=== PATIENT | male | born 1985 | race Caucasian/White ===

== ENCOUNTER 2017-01-12 14:13 | Outpatient (CLI) | payer BC ==
[~2017-01-12] VITALS: Ht 185.4 cm; Wt 96.6 kg
[~2017-01-12 14:13] MED LIST: AMOX-358 PO; HYDR-3454 PO
[2017-01-12 14:28] VITALS: BP 130/80
[2017-01-13] MEDS ORDERED: HYDR-3812 PO (08:48)
== END 2017-01-12 14:57 | disposition home or self-care (01) ==
LOC: PREOP 14:13
PROVIDERS: ATTEND Surgery
DX: Z01.818 Encounter for other preprocedural examination (principal); Z11.2 Encounter for screening for other bacterial diseases; K61.0 Anal abscess
CPT/HCPCS: 87081

== ENCOUNTER 2017-01-13 07:33 | Day surgery (SDC) | payer BC ==
[~2017-01-13] VITALS: Ht 185.4 cm; Wt 96.6 kg
[2017-01-13] MEDS: LACTATED RINGERS 1,000 ML IV PRN ×2 (07:45→08:50)
--- NOTE | 2017-01-13 07:54 | Progress Note-Pre Operative ---
Pre-Operative Progress Note H&P Reviewed The H&P was reviewed, patient examined and no changes noted. Date H&P Reviewed: Jan 13, 2017 Time H&P Reviewed: 07:54 Pre-Operative Diagnosis: Recurrent jose-anal abscess JOSEFINA SALDAÑA MD Jan 13, 2017 7:54 am
[2017-01-13 07:55] VITALS: BP 155/94
[2017-01-13] MEDS ORDERED: MIDAZOLAM 2 MG/2 ML (VERSED) VIAL IV ONE (08:00)
[2017-01-13] MEDS ORDERED: ceFAZolin 2 GM/NS 50 ML IV ONE (08:00)
--- OUTSIDE RECORDS SUMMARY | 2017-01-13 08:04 | XMS REPORT | Continuity of Care Document ---
Author Author [facility] Organization [facility] Address Unknown Phone Unavailable Care Team Providers Care Change Director Name Role Phone CARI MAE DO PCP Insurance Providers Payer Name Policy Number Subscriber Name Relationship [facility] [id number] Tyler Rodriguez 18 Self / Same As Patient Advance Directives Directive Response Recorded Date/Time Advance Directives No 01/12/17 2:24pm Health Care Power of Insurance Legal Assistant No 01/12/17 2:24pm Resuscitation Status Full Code 01/12/17 2:24pm Problems No problem information available. Medications No known medications. Social History Social History Problem Response Recorded Date/Time Alcohol Use Occasionally Uses 07/08/2015 12:45pm Recreational Drug Use No 07/08/2015 12:45pm Recent Foreign Travel No 01/12/2017 2:23pm Recent Infectious Disease Exposure No 01/12/2017 2:23pm Sexually Transmitted Disease No 01/12/2017 2:24pm HIV/AIDS No 01/12/2017 2:24pm Smoking Status Never a Smoker 01/12/2017 2:24pm Recent Hopitalizations No 01/12/2017 2:24pm Sexually Transmitted Disease No 01/12/2017 2:24pm Query Response Start Date Stop Date Smoking Status Never a Smoker Hospital Discharge Instructions No hospital discharge instructions. Plan of Care Discharge Date 01/12/17 2:57pm Prescriptions See Medication Section Functional Status No functional status results. Allergies, Adverse Reactions, Alerts Allergen Type Severity Reaction Status Last Updated Tramadol Allergy Intermediate GI UPSET Active 01/12/17 Immunizations No immunization records. Vital Signs Acute Vital Signs Vital Response Date/Time Pulse Rate (adult) 89 bpm (60 - 90) 01/12/2017 2:28pm Respiratory Rate 16 bpm (12 - 24) 01/12/2017 2:28pm O2 Sat by Pulse Oximetry 100 % (88 - 100) 01/12/2017 2:28pm Blood Pressure 130/80 mm Hg 01/12/2017 2:28pm Blood Pressure Mean 97 mm Hg 01/12/2017 2:28pm Pain Numeric Pain Scale 10-Worst Possible Pain 01/12/2017 2:28pm Height (Feet) 6 feet 01/12/2017 2:23pm Height (Inches) 1.00 inches 01/12/2017 2:23pm Height (Calculated Centimeters) 185.004308 cm 01/12/2017 2:23pm Weight (Pounds) 213 pounds 01/12/2017 2:23pm Weight (Ounces) 0.0 oz 01/12/2017 2:23pm Weight (Calculated Grams) 67632.18 gm 01/12/2017 2:23pm Weight (Calculated Kilograms) 96.735518 kilograms 01/12/2017 2:23pm Calculated BMI 28.1 01/12/2017 2:23pm Results No known relevant diagnostic tests, laboratory data and/or discharge summary. Procedures No known history of procedures. Encounters Encounter Location Arrival/Admit Date Discharge/Depart Date Attending Provider Departed Clinic [facility] 01/12/17 2:13pm 01/12/17 2: 57pm JOSEFINA SALDAÑA MD
--- OUTSIDE RECORDS SUMMARY | 2017-01-13 08:04 | XMS REPORT | Continuity of Care Document ---
Author Author [facility] Organization [facility] Address Unknown Phone Unavailable Care Team Providers Care Junior Legal Secretary Name Role Phone CARI MAE DO PCP Insurance Providers Payer Name Policy Number Subscriber Name Relationship [facility] [id number] Tyler Rodriguez 18 Self / Same As Patient Advance Directives Directive Response Recorded Date/Time Advance Directives No 01/12/17 2:24pm Health Care Power of Contour Grinder No 01/12/17 2:24pm Resuscitation Status Full Code [...] 1.00 inches 01/12/2017 2:23pm Height (Calculated Centimeters) 185.653763 cm 01/12/2017 2:23pm Weight (Pounds) 213 pounds 01/12/2017 2:23pm Weight (Ounces) 0.0 oz 01/12/2017 2:23pm Weight (Calculated Grams) 30516.18 gm 01/12/2017 2:23pm Weight (Calculated Kilograms) 96.143836 kilograms 01/12/2017 2:23pm Calculated BMI 28.1 01/12/2017 2:23pm Results No known relevant diagnostic tests, laboratory data and/or discharge summary. Procedures No known history of procedures. Encounters Encounter Location Arrival/Admit Date Discharge/Depart Date Attending Provider Departed Clinic [facility] 01/12/17 2:13pm 01/12/17 2: 57pm JOSEFINA SALDAÑA MD
[2017-01-13] MEDS ORDERED: fentaNYL INJECTION 100 MCG/2 ML AMP IV ONE (08:15)
[2017-01-13] MEDS ORDERED: MIDAZOLAM 2 MG/2 ML (VERSED) VIAL ONE (08:18)
[2017-01-13] MEDS ORDERED: LACTATED RINGERS 1,000 ML IV ONE (08:18)
[2017-01-13] MEDS ORDERED: LIDOCAINE PF 2% 10 ML (XYLOCAINE) AMP ONE (08:18)
[2017-01-13] MEDS ORDERED: proPOfol 200 MG/20 ML (DIPRIVAN) VIAL IV ONE (08:18)
[2017-01-13] MEDS ORDERED: ONDANSETRON 4 MG/2 ML (SDV) Z0FRAN ONE (08:18)
[2017-01-13] MEDS ORDERED: DEXAMETHASONE PF 10 MG/ML (DECADRON) VIAL ONE (08:20)
[2017-01-13] MEDS ORDERED: SEVOFLURANE (ULTANE) 15 ML INHAL SOLN ONE (08:20)
--- NOTE | 2017-01-13 08:47 | Progress Note-Post Operative ---
Post-Operative Progess Note Pre-Operative Diagnosis Recurrent jose-anal abscess Post-Operative Diagnosis SAME Post-Op Procedure Note Date of Procedure: Jan 13, 2017 Name of Procedure: incision and drainage Anesthesia Type Gen. Estimated blood loss (mL): minimal JOSEFINA SALDAÑA MD Jan 13, 2017 8:47 am
[2017-01-13] MEDS ORDERED: HYDR-3812 PO (08:48)
--- NOTE | 2017-01-13 08:48 | Discharge Inst-Simple/Standard ---
Discharge Inst-Standard Discharge Medications New, Converted or Re-Newed RX: RX on Chart Patient Instructions/Follow Up Plan of Care/Instructions/FU: follow-up in a week. To use dosa-ett-korzxor stool softeners Activity as Tolerated: Yes Discharge Diet: No Restrictions JOSEFINA SALDAÑA MD Jan 13, 2017 8:48 am
[2017-01-13] MEDS ORDERED: MEPERIDINE (DEMEROL) INJ 50 MG/ML IVP PRN (09:15)
[2017-01-13] MEDS ORDERED: morphine INJ 10 MG/ML 1ML (SYR OR VIAL) IVP PRN (09:15)
[2017-01-13] MEDS ORDERED: HYDROmorphone (DILAUDID) 2 MG/ML VIAL IVP PRN (09:15)
[2017-01-13] MEDS ORDERED: ONDANSETRON 4 MG/2 ML (SDV) Z0FRAN IVP PRN (09:15)
[2017-01-13 09:55] VITALS: BP 128/81
[2017-01-13] MEDS ORDERED: HYDROcodone/APAP 5 MG/325 MG (LORTAB) TAB ONE (09:57)
[2017-01-13] MEDS ORDERED: HYDROcodone/APAP 5 MG/325 MG (LORTAB) TAB PO PRN (10:15)
[2017-01-13 10:25] VITALS: BP 134/82
[2017-01-13 10:55] VITALS: BP 141/82
--- NOTE | 2017-01-13 11:17 | OPERATIVE REPORT ---
PROCEDURE PHYSICIAN: JOSEFINA SALDAÑA DATE OF PROCEDURE: 01/13/2017 PREOPERATIVE DIAGNOSIS: Recurrent perianal abscess. POSTOPERATIVE DIAGNOSIS: Recurrent perianal abscess. OPERATION: Incision and drainage of recurrent perianal abscess. SURGEON: Ramana ANESTHESIA: General anesthesia. BLOOD LOSS: Minimal. FLUIDS: About 300 mL TYPE OF WOUND: Type IV(dirty wound). INDICATION FOR PROCEDURE: This gentleman presented with a recurrent perianal abscess, requiring formal incision and drainage. An informed consent was obtained after reviewing the operative details and highlighting the natural history of recurrence and the possibility of developing an anal fistula in situ. DESCRIPTION OF PROCEDURE: He was initially placed supine on the operative table and general anesthesia induced. 2 grams of Ancef were administered intravenously. Subsequently, he was placed in combined lithotomy position, his legs being supported on stirrups. The abscess was located at about the 5 o'clock position. A 3 cm radial incision was made and the abscess was drained. The cavity was irrigated with saline and a [place] drain left to promote postoperative drainage. It was secured using a 2-0 silk suture and a dressing applied. He tolerated the procedure well, was extubated in the operating room and taken to the recovery room in a stable condition. Job ID: [id number] Dictated Date: 01/13/2017 08:46:32 Stacker And Sorter Operator Date: 01/13/2017 11:10:27 / gael
== END 2017-01-13 11:05 | disposition home or self-care (01) ==
LOC: SDC 07:33
PROVIDERS: ATTEND Surgery
DX: K61.0 Anal abscess (principal)

== ENCOUNTER 2018-09-25 14:19 | Outpatient (CLI) | payer BC ==
[~2018-09-25] VITALS: Ht 185.4 cm; Wt 99.8 kg
[~2018-09-25 14:19] MED LIST changes: +ACHD5005 PO
== END 2018-09-25 14:40 | disposition home or self-care (01) ==
LOC: PREOP 14:19
PROVIDERS: ATTEND Surgery
DX: Z01.818 Encounter for other preprocedural examination (principal)

== ENCOUNTER 2018-09-26 10:25 | Day surgery (SDC) | payer BC ==
[~2018-09-26] VITALS: Ht 185.4 cm; Wt 99.3 kg
--- OUTSIDE RECORDS SUMMARY | 2018-09-26 10:32 | XMS REPORT | Continuity of Care Document ---
Author Author [facility] Organization [facility] Address Unknown Phone Unavailable Allergies Active Description Code Type Severity Reaction Onset Reported/Identified Relationship to Patient Clinical Status Yes No Known Drug Allergies [id number] Drug Allergy Unknown N/A 07/08/2015 Yes tramadol [id number] Drug Allergy Moderate GI UPSET 01/12/2017 Medications There is no data. Problems Date Dx Coded Attending Type Code Diagnosis Diagnosed By 07/08/2015 PIPER SABILLON, JOSEFINA Guerin Ot 566 07/08/2015 JOSEFINA SALDAÑA MD Ot V74.8 01/12/2017 PIPER SABILLON, JOSEFINA Guerin Ot K61.0 ANAL ABSCESS 01/12/2017 PIPER SABILLON, JOSEFINA Guerin Ot Z01.818 ENCOUNTER FOR OTHER PREPROCEDURAL EXAMIN 01/12/2017 JOSEFINA SALDAAÑ MD Ot Z11.2 ENCOUNTER FOR SCREENING FOR OTHER BACTER 01/13/2017 PIPER SABILLON, JOSEFINA Guerin Ot K61.0 ANAL ABSCESS 01/17/2017 PIPER SABILLON, JOSEFINA Guerin Ot K61.0 ANAL ABSCESS 02/02/2017 JOSEFINA SALDAÑA MD Ot K61.0 ANAL ABSCESS Procedures There is no data. Results Test Result Range Methicillin resistant Staphylococcus aureus (MRSA) screening culture - 14:30 Methicillin resistant Staphylococcus aureus (MRSA) screening culture NEG NRG Encounters ACCT No. Visit Date/Time Discharge Status Pt. Type Provider Facility Loc./Unit Complaint [id number] 06/08/2015 22:23:02 06/08/2015 23:59:59 CLS Outpatient Hortensia Plascencia [id number] 08/05/2014 11:12:15 08/05/2014 23:59:59 CLS Outpatient Hortensia Plascencia [id number] 01/02/2014 09:57:23 01/02/2014 23:59:59 CLS Outpatient Hortensia Plascencia 12/201709/19/2018 09:50:22 09/19/2018 23:59:59 CLS Outpatient Caroline Brush KevanNicole [id number] 01/13/2017 07:33:00 01/13/2017 11:05:00 DIS Outpatient JOSEFINA SALDAÑA MD [facility] RECURRENT PERIANAL ABSCESS [id number] 01/12/2017 14:13:00 01/12/2017 14:57:00 DIS Outpatient JOSEFINA SALDAÑA MD [facility] PREOP RECURRENT PERIANAL ABSCESS [id number] 07/08/2015 11:57:00 07/08/2015 17:15:00 DIS Outpatient JOSEFINA SALDAÑA MD [facility]
--- OUTSIDE RECORDS SUMMARY | 2018-09-26 10:32 | XMS REPORT ---
Author Author Makenna Montoya [facility] Address [address] [facility] [address] [place], [place] [id number] Care Team Providers Care Quality Control Clerk Name Role Phone Makenna Montoya PCP Unavailable Allergies and Adverse Reactions Name Reaction Notes NO KNOWN DRUG ALLERGIES Plan of Treatment Not available. Medications Active Name Start Date Estimated Completion Date SIG Comments Xanax oral tablet 0.25 mg 05/22/2015 08/20/2015 take 1 tablet by oral route 3 times per day as needed Name Start Date Expiration Date SIG Comments Celexa Oral Tablet 20 mg 05/18/2010 05/13/2011 take 1 tablet (20 mg) by oral route daily for 30 days Soma Oral Tablet 350 mg 10/14/2010 11/13/2010 take 1 tablet (350 mg) by oral route 3 times per day and at bedtime for 30 days Lortab Oral Tablet 7.5-500 mg 10/14/2010 11/13/2010 take 1 tablet by oral route every 6 hours as needed for pain for 30 days Physical therapy eval and TX 10/14/2010 10/15/2010 for back pain Alprazolam Oral Tablet 0.25 mg 04/15/2011 05/15/2011 take 1 tablet (0.25 mg) by oral route TID PRN for 30 days Discontinued Name Start Date Discontinued Date SIG Comments Zoloft Oral Tablet 50 mg 05/18/2010 take 1 tablet (50 mg) by oral route once daily Advil Oral Tablet 200 mg 06/06/2011 take 1 tablet (200 mg) by oral route every 6 hours as needed with food cyclobenzaprine oral tablet 10 mg 01/02/2014 05/22/2015 take 1 tablet (10 mg) by oral route 3 times per day as needed Zoloft oral tablet 50 mg 01/02/2014 05/22/2015 take 1 tablet (50 mg) by oral route once daily hydrocodone-acetaminophen oral tablet 5-325 mg 01/02/2014 05/22/2015 take 1 tablet by oral route every 6 hours as needed for pain Problem List Description Status Onset Anxiety Active Panic Attacks Active Vital Signs Date Time BP-Sys(mm[Hg] BP-Daina(mm[Hg]) HR(bpm) RR(rpm) Temp WT HT HC BMI BSA BMI Percentile O2 Sat(%) 05/22/2015 8:53:00 AM 138 mmHg 82 mmHg 57 bpm 20 rpm 97.6 F 237 lbs 73 in 31.27 kg/m2 2.35 m2 100 % 08/05/2014 10:18:00 AM 134 mmHg 72 mmHg 81 bpm 18 rpm 97.6 F 244.6 lbs 73 in 32.2707 kg/m 2.3905 m 100 % 01/02/2014 9:04:00 AM 141 mmHg 79 mmHg 88 bpm 18 rpm 97.8 F 244.8 lbs 73 in 32.30 kg/m2 2.39 m2 97 % 09/17/2013 9:23:00 AM 140 mmHg 84 mmHg 64 bpm 18 rpm 98.2 F 243 lbs 73 in 32.0597 kg/m 2.3827 m 100 % 05/17/2013 8:42:00 AM 142 mmHg 90 mmHg 82 bpm 20 rpm 97 F 222.4 lbs 73 in 29.34 kg/m2 2.28 m2 100 % 04/16/2013 4:14:00 PM 158 mmHg 90 mmHg 85 bpm 18 rpm 98.6 F 203.8 lbs 73 in 26.8879 kg/m 2.182 m 100 % 06/06/2011 9:35:00 AM 124 mmHg 82 mmHg 70 bpm 16 rpm 97 F 211 lbs 73 in 27.84 kg/m2 2.22 m2 98 % 09/08/2010 3:01:00 PM 140 mmHg 80 mmHg 66 bpm 16 rpm 97.6 F 225.5 lbs 73 in 29.7508 kg/m 2.2953 m 100 % 05/18/2010 10:38:00 AM 140 mmHg 90 mmHg 82 bpm 18 rpm 98.4 F 220.5 lbs 73 in 29.09 kg/m2 2.27 m2 100 % Social History Name Description Comments Student (College) denies smoking experimented with illicit drugs in past marijuana in high school Alcohol Use 1 case of beer / week Dating Exercises regularly 3 years college History of Procedures Date Ordered Description Order Status 09/17/2013 12:00 AM DESTRUCT B9 LESION 1-14 Reviewed 01/02/2014 12:00 AM THER/PROPH/DIAG INJ SC/IM Reviewed 01/02/2014 12:00 AM X-RAY EXAM L-S SPINE BENDING Returned 09/08/2010 12:00 AM THER/PROPH/DIAG INJ SC/IM Reviewed 06/06/2011 12:00 AM DESTRUCT PREMALG LESION Reviewed 06/06/2011 12:00 AM DESTRUCT PREMALG LES 2-14 Reviewed 06/06/2011 12:00 AM DESTRUCT PREMALG LESION Reviewed 06/06/2011 12:00 AM DESTRUCT PREMALG LES 2-14 Reviewed Results Summary Data and Description Results 05/18/2010 10:36 AM Colonoscopy-Women and Men over 50 Declined Digital Rectal Exam Refused PSA SerPl-mCnc 0.0 ng/mLCholest Cry Stone Ql IR 0.0 %LDLc SerPl- mCnc 0.0 mg/dLHDLc SerPl-mCnc 0.0 mg/dLTrigl SerPl-mCnc 0.0 mg/dLGlucose SerPl- mCnc 0.0 mg/dLHIV1+2 Ab Ser Ql no risk Depression Done Aspirin reccommended Refused History Of Immunizations Name Date Admin Mfg Name Mfg Code Trade Name Lot# Route Inj Vis Given Vis Pub CVX Influenza 08/19/2009 Not Entered NE Not Entered Not Entered Not Entered 10/30/2014 10/30/2014 999 History of Past Illness Name Date of Onset Comments Anxiety Panic Attacks Right Bundle Branch Block Anxiety Disorder, Generalized May 18 2010 10:39AM Back Pain with Radiation Sep 08 2010 3:13PM Anxiety Disorder Jun 06 2011 9:35AM Wart Jun 06 2011 9:35AM Common Wart Jun 06 2011 10:01AM Anxiety Disorder Apr 16 2013 4:22PM Anxiety Disorder May 17 2013 8:46AM Depressive Disorder May 17 2013 8:46AM Anxiety Disorder Sep 17 2013 9:27AM Depressive Disorder Sep 17 2013 9:27AM Warts Sep 17 2013 9:27AM Common Warts Sep 17 2013 1:13PM Anxiety Disorder Jan 02 2014 9:06AM Depressive Disorder Jan 02 2014 9:06AM Low Back Pain Jan 02 2014 9:06AM Low Back Pain Jan 02 2014 4:39PM Anxiety Disorder Aug 05 2014 10:20AM Depressive Disorder Aug 05 2014 10:20AM Anxiety Disorder May 22 2015 8:55AM Depressive Disorder May 22 2015 8:55AM Payers Insurance Name Company Name Plan Name Plan Number Policy Number Policy Group Number Start Date [employer] [id number] Monday, 2012 [employer] [place] [id number] January [employer] [place] [id number] Tuesday, 2010 History of Encounters Visit Date Visit Type Provider 05/22/2015 Office visit Hortensia Plascencia PATIENT CENTERED CARE SPECIALIST 08/05/2014 Office visit Hortensia Plascencia PATIENT CENTERED CARE SPECIALIST 01/02/2014 Office visit Hortensia Plascencia PATIENT CENTERED CARE SPECIALIST 09/17/2013 Office visit Hortensia Plascencia APRN 05/17/2013 Office visit Hortensia Plascencia PATIENT CENTERED CARE SPECIALIST 04/16/2013 Office visit Hortensia Plascencia PATIENT CENTERED CARE SPECIALIST 06/06/2011 Office visit Makenna Montoya MD 09/08/2010 Office visit Kj Gregory DO 05/18/2010 Office visit Kj Gregory DO 08/19/2009 Office visit Kj Gregory DO
[2018-09-26] MEDS ORDERED: LACTATED RINGERS 1,000 ML IV PRN ×2 (10:44→11:14)
[2018-09-26 10:45] VITALS: BP 145/84
[2018-09-26] MEDS ORDERED: ceFAZolin 2 GM IV Premixed 50 ML IV ONE (10:45)
--- NOTE | 2018-09-26 10:54 | Progress Note-Pre Operative ---
Pre-Operative Progress Note H&P Reviewed The H&P was reviewed, patient examined and no changes noted. Date Seen by Provider: Sep 25, 2018 Time Seen by Provider: 11:10 Date H&P Reviewed: Sep 26, 2018 Time H&P Reviewed: 10:54 Pre-Operative Diagnosis: Recurrent jose-anal abscess JOSEFINA SALDAÑA MD Sep 26, 2018 10:54
[2018-09-26] MEDS ORDERED: MIDAZOLAM 2 MG/2 ML (VERSED) VIAL IV ONE (11:15)
[2018-09-26] MEDS ORDERED: fentaNYL INJECTION 100 MCG/2 ML AMP IV ONE (11:15)
[2018-09-26] MEDS ORDERED: BUP/EPI 0.5% 1:200,000 (SENSORCAINE) 30 ML VIAL ONE (11:56)
[2018-09-26] MEDS ORDERED: proPOfol 200 MG/20 ML (DIPRIVAN) VIAL IV ONE (12:01)
[2018-09-26] MEDS ORDERED: LIDOCAINE PF 2% 5 ML (XYLOCAINE) VIAL ONE (12:01)
[2018-09-26] MEDS ORDERED: SEVOFLURANE (ULTANE) 15 ML INHAL SOLN ONE ×2 (12:01→13:17)
[2018-09-26] MEDS ORDERED: MIDAZOLAM 2 MG/2 ML (VERSED) VIAL ONE (12:01)
[2018-09-26] MEDS ORDERED: fentaNYL INJECTION 100 MCG/2 ML AMP ONE (12:01)
[2018-09-26] MEDS ORDERED: ONDANSETRON 4 MG/2 ML (SDV) Z0FRAN ONE (12:07)
[2018-09-26] MEDS ORDERED: DEXAMETHASONE 10 MG/ML (DECADRON) 1 ML VIAL ONE (12:07)
[2018-09-26] MEDS ORDERED: ONDANSETRON 4 MG/2 ML (SDV) Z0FRAN IVP PRN (13:30)
[2018-09-26] MEDS ORDERED: MEPERIDINE (DEMEROL) INJ 50 MG/ML IVP ONE (13:30)
[2018-09-26] MEDS ORDERED: morphine INJ 10 MG/ML 1ML (SYR OR VIAL) IVP ONE (13:30)
[2018-09-26] MEDS ORDERED: HYDROmorphone 2 MG/ML VIAL (DILAUDID) IV ONE (13:30)
[2018-09-26] MEDS ORDERED: morphine INJ 10 MG/ML 1ML (SYR OR VIAL) ONE (13:32)
--- NOTE | 2018-09-26 13:36 | Operative Report ---
Operative Report Date of Procedure/Surgery Sep 26, 2018 Surgeon (s) JOSEFINA SALDAÑA MD All Round Butcher (s): N/A Post-Operative Diagnosis Recurrent perianal abscess Procedure Performed Incision and drainage Description of Procedure Anesthesia Type: General Estimated blood loss (mL): Minimal Specimen(s) collected/removed Pus for culture and sensitivity Description of the Procedure Indication for the procedure: This gentleman presented with a recurrent perianal abscess. There was no clinical evidence of fistula in ano. He was offered formal incision and drainage to facilitate resolution of his abscess. Informed consent was obtained after reviewing the operative details and highlighting the natural history of further recurrence and fistula formation. Description of the procedure: He was initially placed supine on the operative table and general anesthesia induced. Subsequently, he was placed in combined lithotomy position, his legs being supported on stirrups. 2 g of Ancef were administered intravenously. Perianal area was prepared and draped in the usual sterile manner. Examination confirmed a small abscess at about 3 o'clock position. A 1 cm incision was made and the abscess drained. The cavity was irrigated with saline and a [place] drain left, to promote postoperative drainage. It was secured using a 2 -0 silk suture. A nonadherent dressing was then applied. He tolerated the procedure well placed supine on the operative table, before being extubated and taken to the recovery room in a stable condition Findings of the Procedure See operative report Allergies and Home Medications Allergies Coded Allergies: tramadol (Verified Allergy, Intermediate, GI UPSET, 01/12/17) clindamycin (Verified Allergy, Unknown, RASH, 09/25/18) Home Medications No Active Prescriptions or Reported Meds Patient Home Medication List Home Medication List Reviewed: Yes JOSEFINA SALDAÑA MD Sep 26, 2018 13:36
--- NOTE | 2018-09-26 13:37 | Discharge Inst-Simple/Standard ---
Discharge Inst-Standard Discharge Medications New, Converted or Re-Newed RX: Other Patient Instructions/Follow Up Plan of Care/Instructions/FU: Patient has a prescription for Vicodin from yesterday. Please instruct on drain care. May shower. Follow-up in a week Activity as Tolerated: Yes Discharge Diet: No Restrictions JOSEFINA SALDAÑA MD Sep 26, 2018 13:37
[2018-09-26 14:20] VITALS: BP 118/78
[2018-09-26 14:36] VITALS: BP 118/78
--- NOTE | 2018-09-26 14:36 | Anesthesia-General Post-Op ---
General Patient Condition Mental Status/LOC: Same as Preop Cardiovascular: Satisfactory Nausea/Vomiting: Absent Respiratory: Satisfactory Pain: Controlled Complications: Absent Post Op Complications Complications None Follow Up Care/Instructions Patient Instructions None needed. Anesthesia/Patient Condition Patient Condition Patient is doing well, no complaints, stable vital signs, no apparent adverse anesthesia problems. No complications reported per nursing. IVON OTERO CRNA Sep 26, 2018 14:36
[2018-09-26 14:50] VITALS: BP 119/72
[2018-09-26] MEDS ORDERED: HYDROcodone/APAP 5 MG/325 MG (LORTAB) TAB ONE (14:59)
[2018-09-26] MEDS ORDERED: HYDROcodone/APAP 5 MG/325 MG (LORTAB) TAB PO ONE (15:00)
[2018-09-26 15:20] VITALS: BP 118/75
== END 2018-09-26 15:20 | disposition home or self-care (01) ==
LOC: SDC 10:25
PROVIDERS: ATTEND Surgery
DX: K61.0 Anal abscess (principal); Z11.2 Encounter for screening for other bacterial diseases
CPT/HCPCS: 87070; 87075; 87077; 87081; 87205

== ENCOUNTER 2021-02-28 10:47 | Emergency (ER) | payer BC ==
[~2021-02-28] VITALS: Ht 185 cm; Wt 99.7 kg
[~2021-02-28 10:47] MED LIST changes: -HYDR-3454 PO; +HYDR-3455 PO
--- NOTE | 2021-02-28 11:42 | ED Integumentary General ---
General Chief Complaint: Rect Problems Stated Complaint: RECTAL PAIN/ABSCESS Nursing Triage Note: PT PRESENTS TO ED WITH COMPLAINTS OF RECTAL PAIN/ABCESS SINCE MONDAY. Source: patient Exam Limitations: no limitations History of Present Illness Date Seen by Provider: February 28, 2021 Time Seen by Provider: 11:39 Initial Comments To ER with a recurrent perirectal abscess. This views third occurrence. No systemic symptoms such as fevers or chills nausea vomiting. This particular recurrence began 3 days ago. Most recently it was drained by Dr. Boles in the operating room in 2018. Timing/Duration: constant, getting worse Severity: moderate Location: none Possible Cause: no cause identified Associated Symptoms: denies symptoms Allergies and Home Medications Allergies Coded Allergies: tramadol (Verified Allergy, Intermediate, GI UPSET, 01/12/17) clindamycin (Verified Allergy, Unknown, RASH, 09/25/18) Home Medications Docusate Sodium 100 Mg Capsule, 100 MG PO DAILY Prescribed by: GRACE VARELA on 02/28/21 1310 Hydrocodone/Acetaminophen 1 Each Tablet, 1 TAB PO Q4H PRN for PAIN-MODERATE (5- 7) Prescribed by: GRACE VARELA on 02/28/21 1311 Metronidazole 500 Mg Tablet, 500 MG PO TID Prescribed by: GRACE VARELA on 02/28/21 1310 Sulfamethoxazole/Trimethoprim 1 Each Tablet, 1 EACH PO BID Prescribed by: GRACE VARELA on 02/28/21 1310 Patient Home Medication List Home Medication List Reviewed: Yes Review of Systems Review of Systems Constitutional: see HPI EENTM: see HPI Respiratory: no symptoms reported Cardiovascular: no symptoms reported Genitourinary: no symptoms reported Musculoskeletal: no symptoms reported Skin: no symptoms reported Psychiatric/Neurological: No Symptoms Reported Endocrine: No Symptoms Reported Hematologic/Lymphatic: No Symptoms Reported Past Zibyqub-Mjlqap-Gilhoo Hx Patient Social History Alcohol Use: Occasionally Uses Number of Drinks Today: II Alcohol Beverage of Choice: Wine, Other Drug of Choice: MARIJUNA Smoking Status: Never a Smoker Recent Infectious Disease Expo: No Recent Hopitalizations: No Seasonal Allergies Seasonal Allergies: No Past Medical History Surgeries: Yes (knee surg x4, MILLA-ANAL ABSCESS x2) Respiratory: No Cardiac: No Neurological: No Reproductive Disorders: No Sexually Transmitted Disease: No HIV/AIDS: No Gastrointestinal: No (perianal abscess) Musculoskeletal: Yes (KNEE) Arthritis Endocrine: No Loss of Vision: Denies Hearing Impairment: Denies Cancer: No Psychosocial: Yes Anxiety, Depression Integumentary: No Blood Disorders: No Adverse Reaction/Blood Tranf: No (N/A) Physical Exam Vital Signs Vital Signs - First Documented 02/28/21 11:31 Temp 36.7 Pulse 75 Resp 20 B/P (MAP) 149/103 (118) Pulse Ox 99 Capillary Refill : Less Than 3 Seconds General Appearance: WD/WN, no apparent distress HEENT: PERRL/EOMI, normal ENT inspection Respiratory: no respiratory distress, no accessory muscle use Extremities: normal range of motion, non-tender Neurologic/Psychiatric: alert, normal mood/affect, oriented x 3 Skin: normal color, warm/dry Skin Problem Character: abscess, other (There is a quarter sized area of induration and fluctuance to the left perianal region. Minimal erythema of the overlying skin certainly no cellulitis. No draining or open fistula.) Progress/Results/Core Measures Results/Orders My Orders Orders - GRACE VARELA APRN Ed Iv/Invasive Line Start (02/28/21 11:53) Lorazepam Injection (Ativan Injection) (02/28/21 12:00) Lidocaine/Epi 2% 1:100,000 (Xylocaine/Ep (02/28/21 12:00) Sodium Bicarbonate 8.4% Vial (Sodium Bic (02/28/21 12:00) Ceftriaxone For Iv Use (Rocephin For I (02/28/21 12:00) Ketorolac Injection (Toradol Injection) (02/28/21 12:00) Wound Culture (02/28/21 11:53) Lidocaine 1% Inj 20 Ml (Xylocaine 1% Inj (02/28/21 11:52) Sodium Bicarbonate 8.4% Syr (Sodium Bica (02/28/21 11:53) Medications Given in ED Current Medications Medications Dose Ordered Sig/Luis Antonio Route Start Time Stop Time Status Last Admin Dose Admin Ketorolac Tromethamine 15 mg ONCE ONCE IVP 02/28/21 12:00 02/28/21 12:01 DC 02/28/21 12:05 15 MG Lorazepam 0.5 mg ONCE PRN IVP 02/28/21 12:00 02/28/21 12:04 0.5 MG Vital Signs/I&O 5/2/21 11:31 Temp 36.7 Pulse 75 Resp 20 B/P (MAP) 149/103 (118) Pulse Ox 99 Blood Pressure Mean: 118 Departure Communication (Admissions) 1142-Patient would prefer to have this drained in the operating room. I did offer to incise and drain it here in the emergency room under local anesthesia. Spoke with Dr. Gaitan, also recommends having it drained under local anesthesia here in the emergency room. Discussed this recommendation with the patient. He would still prefer to have this done in the operating room. 1308-did some local anesthesia with lidocaine with epinephrine. Abscess cavity was identified and found with an 18-gauge needle. 8 mL of bloody purulent material was aspirated. Culture sent to lab. Curved hemostats were then used to dilate the tract. No packing. Impression Primary Impression: recurrent perianal abscess Disposition: HOME, SELF-CARE Condition: Stable Departure-Patient Inst. Decision time for Depature: 13:08 Referrals: NAYELY GAITAN JACQUELINE S DO (PCP/Family) Primary Care Physician Patient Instructions: ABSCESS Add. Discharge Instructions: 1. Soak in a warm bathtub a couple times a day. Shower. See Dr. Gaitan tomorrow--call at 0800 for a time. Antibiotics as directed. Change the gauze as needed. All discharge instructions reviewed with patient and/or family. Voiced understanding. Scripts Metronidazole (Flagyl) 500 Mg Tablet 500 MG PO TID, #20 TAB Prov: GRACE VARELA APRN 02/28/21 Sulfamethoxazole/Trimethoprim (Bactrim Ds Tablet) 1 Each Tablet 1 EACH PO BID, #14 TAB Prov: GRACE VARELA APRN 02/28/21 Docusate Sodium (Colace) 100 Mg Capsule 100 MG PO DAILY, #14 CAP Prov: GRACE VARELA APRN 02/28/21 Hydrocodone/Acetaminophen (Hydrocodone-Acetamin 5-325 mg) 1 Each Tablet 1 TAB PO Q4H PRN for PAIN-MODERATE (5-7), #20 TAB Prov: GRACE VARELA APRN 02/28/21 GRACE VARELA APRN February 28, 2021 11:42
[2021-02-28] MEDS ORDERED: LIDOCAINE 1% INJ 20 ML 20 ML VIAL ONE (11:52)
[2021-02-28] MEDS ORDERED: SODIUM BICARB 8.4% 50 MEQ/50 ML (ABBOTT) SYR ONE (11:53)
[2021-02-28] MEDS ORDERED: KETOROLAC 30 MG/ML VIAL IVP ONE (12:00)
[2021-02-28] MEDS ORDERED: LORazepam INJ 2 MG/ML (ATIVAN) VIAL IVP PRN (12:00)
[2021-02-28] MEDS ORDERED: cefTRIAXone FOR IV USE 1,000 MG in WATER (STERILE) FOR INJECTION 10 ML IV ONE (12:00)
[2021-02-28] MEDS ORDERED: LIDOCAINE/EPI 2% 1:100,00 (XYLOCAINE) 20 ML VIAL INJ ONE (12:00)
[2021-02-28] MEDS ORDERED: SODIUM BICARB 8.4% 50 MEQ/50 ML VIAL IV ONE (12:00)
[2021-02-28] MEDS ORDERED: DOCU-143 PO (13:10)
[2021-02-28] MEDS ORDERED: METR500T PO (13:10)
[2021-02-28] MEDS ORDERED: ACHD5005 PO (13:10)
[2021-02-28] MEDS ORDERED: SULF1TAB35 PO (13:10)
[2021-02-28 13:27] VITALS: BP 152/99
== END 2021-02-28 13:27 | disposition home or self-care (01) ==
LOC: EDUNIT# 10:47 → ER 10:48
DX: K61.0 Anal abscess (principal); Z88.5 Allergy status to narcotic agent; Z88.1 Allergy status to other antibiotic agents
CPT/HCPCS: 87070; 87077; 87205